=== PATIENT | female | born 1965 | race Caucasian/White ===

== ENCOUNTER 2024-01-25 06:04 | Emergency (ER) | payer OTHER, SELFPAY ==
[2024-01-25 06:09] VITALS: BP 117/71; PULSE 85; RESP 18; TEMP 36.6; O2SAT 99; BMI 21.6
--- NOTE | 2024-01-25 06:43 | ED_ITS ---
HPI - Dizziness General Date Seen: 01/25/24 Chief Complaint: Dizziness/Vertigo Stated Complaint: Dizziness, nausea Time Seen by Provider: 01/25/24 06:26 Source: patient Mode of arrival: ambulatory Limitations: no limitations History of Present Illness HPI Narrative: Patient is a 58-year-old female who was in her usual state of health when she went to bed last evening. She got up during the night to use the bathroom and had a spinning sensation. She went back to bed but when she got up this morning she had a similar spinning sensation. She is able to get up and walk down the stairs but did have to hold on. The spinning resolves after being still for 15 or 20 seconds. She has had this once previously. She does have chronic ringing in the ears but no hearing loss. She has had no recent ear pain, cough, febrile illness, head trauma. He has had no numbness or weakness in any of her extremities. Her speech has been clear. There is no nausea or vomiting. No visual changes. Related Data Previous Rx's ?Medication ?Instructions ?Recorded meclizine 25 mg tablet 25 mg PO QID PRN dizziness #20 tabs 01/25/24 Allergies Allergy/AdvReac Type Severity Reaction Status Date / Time No Known Drug Allergies Allergy Verified 01/25/24 06:11 Review of Systems Narrative: Review of systems is outlined above otherwise noted to be negative. [facility] Social History Smoking Status: Never smoker Second hand tobacco smoke exposure: No How often do you have a drink containing alcohol: never AUDIT-C Alcohol total score: 0 Non-prescribed substance use: denies use Exam Narrative: Exam Narrative: Vitals noted. HEENT: Conjunctiva clear. Tympanic membranes are pearly white bilaterally. Posterior pharynx is clear without erythema or exudate. Neck is supple without adenopathy, thyromegaly, carotid bruit. Lungs: Clear to auscultation in all monsivais. No wheezes, rales, rhonchi. Heart: Regular rate and rhythm without murmur. Abdomen: Soft and nontender. No guarding, rigidity, rebound. Bowel sounds are normal. No palpable masses. Extremities: No cyanosis or edema. Good distal pulses. Skin: No abnormalities noted of the exposed skin. Neurologic: Awake, alert, fully oriented. Neurologic exam is nonfocal. She ruff s some lateral and will remain nystagmus with left lateral gaze. This can be reproduced with Hallpike [place] maneuvers with the left ear down. Const: Vital Signs, click to edit/add: Vital Signs - 24 hr 01/25/24 06:09 01/25/24 06:52 01/25/24 06:59 Temperature 97.9 F 97.9 F 97.9 F Pulse Rate [Right Pulse Oximeter] 85 81 81 Respiratory Rate 18 18 18 Blood Pressure [Ri ght Upper Arm] 117/71 121/74 121/74 Pulse Oximetry 99 99 Oxygen Delivery Me thod Room Air Room Air Course Course ED Course: Patient was seen and examined. Her presentation and exam are consistent with BPPV. No imaging or other testing is necessary unless these symptoms are persistent. I explained the pathophysiology and we will try a trial of meclizine. She is comfortable with this plan. Vital Signs Vital signs: Initial Vital Signs Temperature 97.9 F 01/25/24 06:09 Temperature Source Temporal Artery Scan 01/25/24 06:09 Pulse Rate 85 01/25/24 06:09 Respiratory Rate 18 01/25/24 06:09 Blood Pressure 117/71 01/25/24 06:09 Blood Pressure Mean 86 01/25/24 06:09 Blood Pressure Position Sitting 01/25/24 06:09 Pulse Oximetry 99 01/25/24 06:09 Oxygen Delivery Method Room Air 01/25/24 06:09 Vital Signs Temperature 97.9 F 01/25/24 06:09 Pulse Rate 85 01/25/24 06:09 Respiratory Rate 18 01/25/24 06:09 Blood Pressure 117/71 01/25/24 06:09 Pulse Oximetry 99 01/25/24 06:09 Oxygen Delivery Method Room Air 01/25/24 06:09 Temperature 97.9 F 01/25/24 06:59 Pulse Rate 81 01/25/24 06:59 Respiratory Rate 18 01/25/24 06:59 Blood Pressure 121/74 01/25/24 06:59 Pulse Oximetry 99 01/25/24 06:52 Oxygen Delivery Method Room Air 01/25/24 06:52 Discharge Plan Discharge Clinical Impression: Benign paroxysmal positional vertigo Patient Disposition: Home, Self-Care Condition: Stable Additional Instructions: Rest, push fluids, go slowly with changes in head position. Meclizine 25 mg ev emelia 6 hours as needed. Follow up with your PCP if no better in 3-5 days to discuss other testing and possibly PT for canalith repositioning maneuvers. Prescriptions: New meclizine 25 mg tablet 25 mg PO QID PRN (Reason: dizziness) Qty: 20 0RF Stand Alone Forms: MyHealth Info Instructions
--- OUTSIDE RECORDS SUMMARY | 2024-01-25 06:51 | XMS_ITS | Clinical Summary ---
Author Organization [email or web address] [facility] [employer] [facility] Address [place], [place] [address] Care Team Providers Care Tongue And Groove Machine Operator Name Role Phone Chinyere Mcintosh MD Primary Care Provider [phone] Allergies No known active allergies Medications Medication Sig Dispensed Refills Start Date End Date Status calcium carbonate-vitamin D3, 500 mg-400 units, (OSCAL 500 + D) tablet Take 1 tablet by mouth once daily. 0 11/22/2018 Active fluticasone (50 mcg per actuation) nasal solution (FLONASE)Indications:Nasa l congestion Inhale 2 Sprays into both nostrils once daily. 1 Bottle 2 04/22/2020 Active albuterol HFA (ProAir HFA) 90 mcg/actuation inhalerIndications:Bronch itis Inhale 2 Puffs by mouth 4 times daily if needed. 1 Each 1 03/03/2021 Active cetirizine (ZyrTEC) 10 mg tablet Take 1 Tablet (10 mg) by mouth once daily. 03/23/2021 Active multivitamin capsule Take 1 Capsule by mouth once daily. 03/23/2021 Active fluticasone propionate (FLOVENT) 110 mcg/Actuation inhalerIndications:SOB (shortness of breath),Allergic rhinoconjunctivitis Inhale 1 Puff by mouth 2 times daily. 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 Several additional smaller benign simple cysts left breast. Postherpetic polyneuropathy 11/27/2007 Palpitations 01/02/2006 CYSTITIS - ACUTE 09/21/2005 BRONCHOSPASM 05/30/2005 Ovarian cyst Resolved Problems Problem Noted Date Diagnosed Date Resolved Date Regular astigmatism 11/29/2007 09/17/19 13 Presbyopia 11/29/2007 09/17/2012 Myopia 11/29/2007 09/17/2012 Allergic rhinitis, cause unspecified 01/22/2007 08/30/2021 BRONCHITIS - ACUTE 05/30/2005 8 LACERATION FINGER 12/02/2003 12/16/2003 Immunizations Name Administration Dates Next Due AMB Influenza, IIV3 (Age >=3 years)(Flu Clinic Only) 06/17/2008 Influenza A (H1N1), Inactiva dorene (Age >=3 Years) 09/13/2009 Influenza, IIV3 (Age >=3 years) 06/23/20 10,06/10/2007,09/20/2006,2004 Td (Age >=7 Years) 12/02/2003 Tdap 12/21/2010 Family History Medical History Relation Name Comments Cancer-colon Father Cancer-breast Maternal Aunt late 40's Cancer-prostate Maternal Grandfather Good Health Mother Cancer-ovarian No Family History Relation Name Status Comments Father Maternal Aunt Maternal Grandfather Mother Alive Social History Tobacco Use Types Packs/Day Years Used Date Smoking Tobacco: Never Smokeless Tobacco: Never Tobacco Cessation:Counseling Given: No Comments:never Alcohol Use Standard Drinks/Week Comments Yes 0 (1 standard drink = 0.6 oz pur e alcohol) 2 nights a week. 1 hard cider. PHQ-2 Answer Date Recorded PHQ-2 TOTAL SCORE 0 01/20/2022 Social Connections Answer Date Recorded Frequency of Communication with Friends and Fami ly 0 10/23/2023 Financial Resource Strain Answer Date R ecorded Difficulty of Paying Living Expenses 3 10/23/2023 Difficulty of Paying Living Expenses Not on file 10/23/2023 Food Insecurity Answer Date Recorded Worried About Running Out of Food in the Last Ye ar 1 10/23/2023 Transportation Needs Answer Date Record ed Lack of Transportation (Medical) 1 10/23/2023 Housing Stability Answer Date Recorded Unable to Pay for Housing in the Last Year 1 10/23/2023 Sex and Gender Information Value Date Recorded Sex Assigned at Female 10/17/2020 8:20 PM MED AIDE Gender Identity Female 10/17/2020 8:20 PM MED AIDE Sexual Orientation Straight 10/17/2020 8: 20 PM MED AIDE Obstetrics History Para Term AB IAB SAB Ectopic Multiple Livin g Live Births 3 2 1 1 1 0 1 0 0 2 Date Outcome GA Total Labor Labor/2nd/3rd Weight Sex Delivery Anes PTL Nke[place] A1 A5 Name Cl in SAB Term Last Filed Vital Signs Vital Sign Reading Time Taken Comments Blood Pressure 118/72 10/23/2023 9:13 AM MED AIDE Pulse 67 10/23/2023 9:13 AM MED AIDE Temperature 36.4 ??C (97.6 ??F) 10/23/2023 9:13 AM CS T Respiratory Rate 14 05/24/2021 4:11 PM CDT Oxygen Saturation 98% 05/24/2021 4:11 PM CDT Inhaled Oxygen Concentration - - Weight 71.6 kg (157 lb 12.8 oz) 10/23/2023 9:13 AM MED AIDE Height 180.3 cm (5' 11) 10/23/2023 9:13 AM MED AIDE Body Mass Index 22.01 10/23/2023 9:13 AM MED AIDE Plan of Treatment Health Maintenance Due Date Last Done Comments HIV for age 15-65 1978 Hepatitis C screening for age 18-79 1981 Zoster (shingles) series for age 50+ (1 of 2) 2013 Mammogram for age 45-75 12/09/2015 12/09/19 15, 09/03/2013, 09/18/2012, Additional history exists Tetanus booster 12/21/2020 12/21/2010, 12/02/2003 Lipids for age 45-75 07/03/2022 07/03/2017, 04/08/2013, 09/02/2008, Additional history exists Pap test for age 21-65 07/03/2022 7, 07/03/2017, 04/02/2013, Additional history exists Colonoscopy through age 75 08/09/202208/09, 08/09/2017, 08/09/2017, Additional history exists Depression screening for age 12+ 01/20/2023 01/20/2022, 02/07/2021, 08/15/2019, Additional history exists COVID-19 vaccine series ( season) 2023 Influenza for age 50-64 04/20/2024 06/23/20 10, 09/13/2009, 06/17/2008, Additional history exists BMI (ht and wt on same day) for age 18+ 10/22/2024 10/23/2023, 08/29/2021, 10/19/2020, Additional history exists Tdap Completed 12/21/2010 Pneumococcal series for age 6-64 Aged Out No longer eligible based on patient's age to complete this topic Procedures Procedure Name Priority Date/Time Associated Diagnosis Comments COLONOSCOPY 08/09/2017 7:52 AM MED AIDE LIPID PANEL W REFLEX MEASURED LDL Routine 07/03/2017 3:16 PM MED AIDE Annual physical exam HR ADMINISTRATIVE ASSISTANT THIN PREP PAP SCREEN IMAGED Routine 07/03/2017 3:11 PM MED AIDE Screening for malignant neoplasm of cervix XR MAMMO CHARLES BILAT SCREEN Routine 12/08/2014 12:52 PM CDT Other screening mammogram from Last 3 Months or Most Recently Relevant to Health Maintenance Results * COLONOSCOPY (08/09/2017 7:52 AM MED AIDE) 08/09/2017 7:52 AM MED AIDE Narrative Transcriptions Marck Galeas MD - 08/09/2017 8:39 AM CST Patient Name: Fiordaliza Weeks Procedure Date: 08/09/2017 Gender: Female Date of : 1965 Admit Type: Outpatient Procedure: Colonoscopy Proceduralist: Marck Galeas MD , Poppy Drake (Nurse) Referring MD: Chinyere Mcintosh Indications/Pre-Op Diagnosis: Screening in patient at increased risk:Family history of 1st-degree relative withcolorectal cancer before age 60 years, Lastcolonoscopy: April 2011 Medications: Fentanyl 100 micrograms IV, Midazolam 4 mgIV, The level of sedation administered wasmoderate Procedure Description: The patient had risks, benefits and alternatives explained to andgave informed consent. The patient had a stable cardiopulmonary status and judged an adequate candidate for conscious sedation. The Colon CF-[id number] [id number] was passed through the anus and advancedto the cecum, identified by appendiceal orifice and ileocecal valve. The colonoscopy was performed without difficulty. The patient toleratedthe procedure well. The quality of the bowel preparation was good. The ileocecal valve, appendiceal orifice, and rectum were photographed. Complications: No immediate complications. Estimated Blood Loss & Specimen: Estimated blood loss: none. Specimen collected - None Findings: The perianal and digital rectal examinations were normal. The colon (entire examined portion) was moderately redundant. The exam was otherwise without abnormality on direct and retroflexion views. Impressions/Post-Op Diagnosis: - Redundant colon. - The examination was otherwise normal on direct and retroflexionviews. - No specimens collected. Recommendation: - Patient has a contact number available for emergencies. The signsand symptoms of potential delayed complications were discussed with the patient. Return to normal activities tomorrow. Written discharge instructions were provided to the patient. - Resume previous diet. - Continue present medications. - Repeat colonoscopy in 5 years for screening purposes with an adult scope. Moderate Sedation: Moderate (conscious) sedation was administered by the endoscopy nurse and supervised by the endoscopist. The following parameters were monitored: oxygen saturation, heart rate, respiratory rate, blood pressure, adequacy of pulmonary ventilation and reponse to care. [facility] and nursing notes for moderate sedation details. Total physician intraservice time was 20 minutes. Marck Galeas MD 08/09/2017 8:39:10 AM This report has been signed electronically. Note Initiated On: 08/09/2017 7:52 AM Procedure Code(s): --- Professional --- 55416, Colonoscopy, flexible; diagnostic, including collection of specimen(s) bybrushing or washing, when performed (separateprocedure) Diagnosis Code(s): --- Professional --- Z80.0, Family history of malignant neoplasmof digestive organs Q43.8, Other specified congenitalmalformations of intestine CPT copyright 2016 [employer]. All rights reserved. The codes documented in this report are preliminary and upon information clerk cashier reviewmay be revised to meet current compliance requirements. Scope In: 8:13:29 AM Scope Withdrawal Time 0 hours 8 minutes 14 seconds Scope Out: 8:30:44 AM Marck Galeas MD PROCEDURE ORD * (ABNORMAL) LIPID PANEL W REFLEX MEASURED LDL (07/03/2017 3:16 PM MED AIDE) CHOLESTEROL,TOTAL 220(H) 100 - 199 mg/dL 07/03/2017 9:34 PM MED AIDE [facility] [employer] [facility] TRAL LABORATORY TRIGLYCERIDES 53 <150 mg/dL 07/03/2017 9:34 PM MED AIDE [facility] TRAL LABORATORY HDL CHOLESTEROL 81 >40 mg/dL 7 9:34 PM MED AIDE [facility] TRAL LAB[facility]ATORY NON-HDL CHOLESTEROL 139 <145 mg/dl 07/03/2017 9:34 PM [facility] CHOL/HDL RATIO 2.72 <4.50 07/03/2017 9:34 PM MED AIDE [facility] TRA LABORATORY LDL CHOLESTEROL 128 <=130 mg/dL 07/03/2017 9:34 PM MED AIDE [facility] PROVIDER ORDERED STATUS RANDOM 07/03/2017 9:34 PM MED AIDE [facility] Blood BLOOD SPECIMEN / Unknown Venipuncture / Unknown 07/03/2017 3:16 PM MED AIDE 07/03/2017 3:16 PM MED AIDE Chinyere Mcintosh MD CHEMISTRY [facility] [address] [place] [address], * HR ADMINISTRATIVE ASSISTANT THIN PREP PAP SCREEN IMAGED [[id number]] (07/03/2017 3:11 PM MED AIDE) Case Report Gynecologic Cytology Report ? Case: [id number] ? Authorizing Provider: ??Chinyere Mcintosh MD ?? Collected: ? 07/03/2017 1511 ? Ordering Location: ? [facility] ?Received: ?07/03/2017 1512 ? Clinic ? First Screen: ?Johanna Trinidad ? Specimen: ?HR ADMINISTRATIVE ASSISTANT ThinPrep Vial Screening, Cervical ? 07/11/2017 11:56 AM [facility] [employer] [facility] ENTRAL LABORATORY INTERPRETATION/ RESULT NEGATIVE FOR INTRAEPITHELIAL LESION OR MALIGNANCY (NIL) (none) 07/11/2017 11:56 AM [facility] LAB[facility] IMEN ADEQUACY Satisfactory for evaluation Endocervical component present 07/11/2017 11:56 AM [facility] ENTROH LABOR[facility] HPV REQUEST HPV and PAP 07/11/2017 11:56 AM [facility] Date of LMP 200907/11/2017 11:56 AM [facility] Last Pap Date 201207/11/2017 11:56 AM [facility] EN[facility]AL LAB[facility] Last Pap Result NIL 7 11:56 AM [facility] [employer] [facility] Abnormal Pap or [place] Bx in last 5 years No 07/11/2017 11:56 AM [facility] [employer] [facility] Menstrual Status Ablation 07/11/2017 11:56 AM [facility] ENTRAL LAB[facility] [place] Bx Done Today No 07/11/2017 11:56 AM [facility] [employer] [facility] ENTRAL LAB[facility]ATORY Additional Information None given 07/11/2017 11:56 AM [facility] EN[facility]AL [facility] Automated Review Successful 07/11/2017 11:56 AM [facility] Comment:Specimen processed s uccessfully by automated production hand device, ThinPrep Imaging System, [employer] ANCILLARY TESTING HR ADMINISTRATIVE ASSISTANT HPV Ordered, Please see separate report 07/11/2017 11:56 AM [facility] ENTRAL LAB[facility] Note The pap test is a screening technique, not a diagnostic procedure. ??It is used primarily to screen for squamous cancers and precursor lesions. ??Published studies have shown that it is subject to both false negative and false positive results. ??The pap test should not be used as the sole means to diagnose or exclude pre-malignant and malignant lesions. Interpreted at [facility] (Central Lab, [facility], [facility], [facility], [facility], [facility], [facility]) 07/11/2017 11:56 AM MED AIDE [facility] LABORAT[facility]-C ENTRAL LABORATORY Other (Cervical) 07/03/2017 3:11 PM MED AIDE 07/03/2017 3:12 PM MED AIDE Chinyere Mcintosh MD PATHOLOGY/CYTOLOG Y [facility]-CENTRAL LABORATORY [address] [place] [address], [place] * XR MAMMO CHARLES SCREEN BILAT (12/08/2014 12:52 PM CDT) Anatomical Region Laterality Modality BREASTS, Breast Left, Breast Right Bilateral Mammography Impressions 12/08/2014 4:41 PM CDT ??There is no radiographic evidence for malignancy. ??Recommend annual mammograms. A lay language report of this examination will be provided to the patient. MAMMOGRAM ASSESSMENT: ??ACR 1 Negative Narrative 12/08/2014 4:41 PM CDT XR MAMMO CHARLES SCREEN BILAT [[id number]] CLINICAL HISTORY: ??This is an asymptomatic 49 y.o. patient. INDICATION FOR EXAM: Mammogram Screening. TECHNIQUE: CC & MLO views were obtained. ??This digital study was evaluated with the assistance of Computer-Aided Detection. Breast Tomosynthesis was used in interpretation. COMPARISON FILM: Yes 09/03/13 09/18/12 FINDINGS: ??Mammographically, the breast tissue is extremely dense. ??This may lower the sensitivity of mammography. ??There are no dominant masses, suspicious micro calcifications or areas of architectural distortion. Procedure Note Shawna Bess MD - 12/08/2014 XR MAMMO CHARLES SCREEN BILAT [[id number]] CLINICAL HISTORY: This is an asymptomatic 49 y.o. patient. INDICATION FOR EXAM: Mammogram Screening. TECHNIQUE: CC & MLO views were obtained. This digital study was evaluatedwith the assistance of Computer-Aided Detection. Breast Tomosynthesis wasused in interpretation. COMPARISON FILM: Yes 09/03/13 09/18/12 FINDINGS: Mammographically, the breast tissue is extremely dense. Thismay lower the sensitivity of mammography. There are no dominant masses,suspicious micro calcifications or areas of architectural distortion. IMPRESSION: There is no radiographic evidence for malignancy. Recommendannual mammograms. A lay language report of this examination will be provided to the patient. MAMMOGRAM ASSESSMENT: ACR 1 Negative Deysi Amaya MD MAMMO from Last 3 Months or Most Recently Relevant to Health Maintenance Advance Directives * Full Code (Latest Code Status on File) Date Activated Date Inactivated Comments 02/09/2010 6:15 AM 02/09/2010 2:28 PM Care Teams Tongue And Groove Machine Operator Relationship Specialty Start [place] [address] [place] [address] PCP - General Family Practice 03/14/17
[2024-01-25 06:52] VITALS: BP 121/74; PULSE 81; RESP 18; TEMP 36.6; O2SAT 99
[2024-01-25 06:59] VITALS: BP 121/74; PULSE 81; RESP 18; TEMP 36.6
== END 2024-01-25 06:59 | disposition home or self-care (01) ==
PROVIDERS: Emergency Provider Family Medicine; PCP Family Medicine
DX: H81.13 Benign paroxysmal vertigo, bilateral (principal)
CPT/HCPCS: 99281; 99283